=== PATIENT | male | born 1960 | race Two or more races ===

== ENCOUNTER 2018-10-12 08:15 | Outpatient (CLI) | payer OTHER ==
[~2018-10-12] VITALS: Ht 165.1 cm; Wt 79.4 kg
== END 2018-10-12 08:30 | disposition home or self-care (01) ==
LOC: OFIC 805 08:15
DX: J32.8 Other chronic sinusitis (principal); R09.81 Nasal congestion; J30.89 Other allergic rhinitis

== ENCOUNTER 2018-11-09 08:16 | Outpatient (CLI) | payer OTHER ==
[~2018-11-09] VITALS: Ht 152.4 cm; Wt 79.4 kg
== END 2018-11-09 08:35 | disposition home or self-care (01) ==
LOC: OFIC 805 08:16
DX: R09.81 Nasal congestion (principal); J30.89 Other allergic rhinitis; J32.8 Other chronic sinusitis

== ENCOUNTER 2018-11-09 10:21 | Outpatient (CLI) | payer OTHER | END 2018-11-09 10:29 | disposition home or self-care (01) | LOC: SONOGRAMA 10:21 | DX: R22.1 Localized swelling, mass and lump, neck (principal) ==

== ENCOUNTER → 2020-03-31 | Outpatient (CLI) | payer OTHER | END | disposition home or self-care (01) | LOC: OFIC 805 09:00 | PROVIDERS: ATTEND Otolaryngology | DX: M26.642 Arthritis of left temporomandibular joint (principal) ==

== ENCOUNTER 2024-04-04 20:43 | Emergency (ER) | payer OTHER ==
[~2024-04-04] VITALS: Ht 167.6 cm; Wt 79.4 kg
[2024-04-04] MEDS ORDERED: LOSARTAN POTASS25 MG PO (21:49)
[2024-04-04 21:50] VITALS: BP 142/77; O2SAT 97
[2024-04-04] MEDS ORDERED: NORVASC2.5 MG PO (21:50)
[2024-04-04] MEDS ORDERED: KETOROLAC TROMETHAMINE 60 MG VIAL IM STA (22:05)
[2024-04-04] MEDS ORDERED: DEXAMETHASONE SODIUM PHOSPHATE 4 MG/ML VIAL IM STA (22:06)
[2024-04-04] MEDS ORDERED: OxyCODONE HCL/APAP UD (PERCOCET) PO STA (22:06)
== END 2024-04-04 22:53 | disposition home or self-care (01) ==
LOC: ER 20:45
DX: M62.830 Muscle spasm of back (principal); I10 Essential (primary) hypertension; E11.9 Type 2 diabetes mellitus without complications; Z79.84 Long term (current) use of oral hypoglycemic drugs; Z88.8 Allergy status to other drugs, medicaments and biological substances; Z91.013 Allergy to seafood; M51.369 Other intervertebral disc degeneration, lumbar region without mention of lumbar back pain or lower extremity pain